=== PATIENT | female | born 1950 | race Caucasian/White ===

== ENCOUNTER → 2017-02-07 | Outpatient (CLI) | payer OTHER ==
[~2017-02-07] MED LIST: CONEST.625; LEVO750 PO; LEVSOD100 PO; LEVSOD75 PO; MECL25 PO; MESA250ER PO; MESA400ER; NITR.4SL SL
[2017-02-07 12:39] LABS: BASOPHILS ABSOLUTE AUTO 0.05 K/mm3 (0.00-0.23); BASOPHILS PERCENT AUTO 1 % (0-2); EOSINOPHILS ABSOLUTE AUTO 0.08 K/mm3 (0.00-0.68); EOSINOPHILS PERCENT AUTO 1 % (0-6); Hematocrit 35.3 % (33.0-51.0); Hemoglobin 11.8 g/dL (11.5-16.0); IMMATURE GRAN ABSOLUTE AUTO 0.03 K/mm3 (0.00-0.10); IMMATURE GRAN PERCENT AUTO 0 % (0-1); LYMPHOCYTES ABSOLUTE AUTO 2.04 K/mm3 (0.84-5.20); LYMPHOCYTES PERCENT AUTO 19 % (21-46); MONOCYTES ABSOLUTE AUTO 1.34 K/mm3 (0.16-1.47); MONOCYTES PERCENT AUTO 13 % (4-13); Mean Corpuscular HGB 30.3 pg (26.0-34.0); Mean Corpuscular HGB Conc 33.4 g/dL (31.5-36.5); Mean Corpuscular Volume 91 fL (80-100); Mean Platelet Volume 8.7 fL (9.1-12.4); NEUTROPHILS ABSOLUTE AUTO 7.19 K/mm3 (1.96-9.15); NEUTROPHILS PERCENT AUTO 67 % (41-73); Platelet Count 423 K/mm3 (150-400); RDW Standard Deviation 42.3 fL (35.1-46.3); White Blood Cell Count 10.73 K/mm3 (4.00-11.30)
== END ==
LOC: LAB EV 12:33
PROVIDERS: Physician Assistant
DX: M25.531 Pain in right wrist (principal); R07.9 Chest pain, unspecified
CPT/HCPCS: 84550; 85025; 85379; 85651

== ENCOUNTER → 2017-03-07 | Outpatient (CLI) | payer OTHER | END | disposition home or self-care (01) | LOC: LAB 13:28 | DX: E03.9 Hypothyroidism, unspecified (principal) | CPT/HCPCS: 84443 ==

== ENCOUNTER → 2017-06-08 | Outpatient (CLI) | payer OTHER ==
[2017-06-08 14:00] LABS: Free Thyroxine 1.59 ng/dL (0.70-1.60)
[2017-06-08 14:04] LABS: Thyroid Stimulating Hormone 0.26 uIU/mL (0.360-4.800); Triiodothyronine, Free 2.53 pg/mL (2.18-3.98)
== END | disposition home or self-care (01) ==
LOC: LAB SHORT 13:32 → LAB 13:32
PROVIDERS: Nurse Practitioner Family
DX: E03.9 Hypothyroidism, unspecified (principal)
CPT/HCPCS: 84439; 84443; 84481

== ENCOUNTER → 2018-08-07 | Outpatient (CLI) | payer MEDICARE ==
[2018-08-07 14:20] LABS: BASOPHILS ABSOLUTE AUTO 0.03 K/mm3 (0.00-0.23); BASOPHILS PERCENT AUTO 0 % (0-2); EOSINOPHILS PERCENT AUTO 1 % (0-6); Hematocrit 35.3 % (33.0-51.0); Hemoglobin 11.6 g/dL (11.5-16.0); IMMATURE GRAN ABSOLUTE AUTO 0.04 K/mm3 (0.00-0.10); IMMATURE GRAN PERCENT AUTO 0 % (0-1); LYMPHOCYTES ABSOLUTE AUTO 2.09 K/mm3 (0.84-5.20); LYMPHOCYTES PERCENT AUTO 18 % (21-46); MONOCYTES ABSOLUTE AUTO 1.07 K/mm3 (0.16-1.47); MONOCYTES PERCENT AUTO 9 % (4-13); Mean Corpuscular HGB 30.3 pg (26.0-34.0); Mean Corpuscular HGB Conc 32.9 g/dL (31.5-36.5); Mean Corpuscular Volume 92 fL (80-100); Mean Platelet Volume 9.4 fL (9.1-12.4); NEUTROPHILS PERCENT AUTO 71 % (41-73); Platelet Count 336 K/mm3 (150-400); RDW Coefficient Variation 12.8 % (11.7-14.2); RDW Standard Deviation 42.9 fL (35.1-46.3); Red Blood Cell Count 3.83 M/mm3 (3.80-5.20); White Blood Cell Count 11.53 K/mm3 (4.00-11.30)
== END | disposition home or self-care (01) ==
LOC: LAB SHORT 14:14 → LAB EV 14:14
PROVIDERS: Physician Assistant
DX: M54.5 Low back pain (principal)
CPT/HCPCS: 85025; 85651

== ENCOUNTER → 2019-02-09 | Outpatient (CLI) | payer MEDICARE | END | disposition home or self-care (01) | LOC: LAB 10:10 → LAB SHORT 10:10 → LAB FUT 02-06 19:40 | DX: K29.70 Gastritis, unspecified, without bleeding (principal); R19.7 Diarrhea, unspecified; R10.9 Unspecified abdominal pain | CPT/HCPCS: 87177; 87209 ==

== ENCOUNTER → 2019-06-17 | Outpatient (CLI) | payer MEDICARE ==
[2019-06-19 12:28] LABS: Stool Occult Bld Immuno 1 Positive (NEGATIVE)
== END | disposition home or self-care (01) ==
LOC: LAB 13:16 → LAB SHORT 06-18 13:16 → LAB 06-18 13:16
PROVIDERS: Nurse Practitioner Primary Care
DX: Z12.11 Encounter for screening for malignant neoplasm of colon (principal); D64.9 Anemia, unspecified
CPT/HCPCS: G0328

== ENCOUNTER 2019-11-20 12:39 | Inpatient (IN) | payer MEDICARE ==
[~2019-11-20] VITALS: Ht 165.1 cm; Wt 51.9 kg
[~2019-11-20 12:39] MED LIST changes: +Cipro500 MG PO; +EUTHYROX112 MCG PO; +Flagyl500 MG PO; +MESALAMINE PO; +Norco 5-325 Ta1 EACH PO; +ONDA4ODT MM
[2019-11-20 13:28] LABS: BASOPHILS ABSOLUTE AUTO 0.04 K/mm3 (0.00-0.23); BASOPHILS PERCENT AUTO 0 % (0-2); EOSINOPHILS ABSOLUTE AUTO 0.12 K/mm3 (0.00-0.68); EOSINOPHILS PERCENT AUTO 1 % (0-6); Hematocrit 31.4 % (33.0-51.0); IMMATURE GRAN ABSOLUTE AUTO 0.08 K/mm3 (0.00-0.10); IMMATURE GRAN PERCENT AUTO 1 % (0-1); LYMPHOCYTES ABSOLUTE AUTO 2.06 K/mm3 (0.84-5.20); LYMPHOCYTES PERCENT AUTO 14 % (21-46); MONOCYTES ABSOLUTE AUTO 1.35 K/mm3 (0.16-1.47); MONOCYTES PERCENT AUTO 9 % (4-13); Mean Corpuscular HGB Conc 31.8 g/dL (31.5-36.5); Mean Corpuscular Volume 88 fL (80-100); Mean Platelet Volume 8.8 fL (9.1-12.4); NEUTROPHILS ABSOLUTE AUTO 11.22 K/mm3 (1.96-9.15); NEUTROPHILS PERCENT AUTO 75 % (41-73); Platelet Count 452 K/mm3 (150-400); RDW Coefficient Variation 14.7 % (11.7-14.2); RDW Standard Deviation 47.7 fL (35.1-46.3); Red Blood Cell Count 3.57 M/mm3 (3.80-5.20); White Blood Cell Count 14.87 K/mm3 (4.00-11.30)
[2019-11-20 13:40] LABS: Alanine Aminotransfer (ALT/SGP 29 U/L (12-78); Albumin, Blood 2.3 g/dL (3.4-5.0); Albumin/Globulin Ratio 0.5 (0.8-1.8); Alk Phos 84 U/L (50-136); Anion Gap 9 mmol/L (6-16); Aspartate Aminotrans (AST/SGOT 13 U/L (12-37); Bilirubin, Total 0.3 mg/dL (0.1-1.0); Blood Urea Nitrogen 17 mg/dL (8-24); Bun/Creatinine Ratio 24.2 (12.0-20.0); CO2, Blood 22 mmol/L (21-32); Calcium, Blood 8.5 mg/dL (8.5-10.1); Chloride, Blood 100 mmol/L (98-108); Globulin, Blood 4.7 g/dL (2.2-4.0); Glomerular Filtration Rate >60 (60-); Glucose, Blood 130 mg/dL (70-99); Potassium, Blood 4.1 mmol/L (3.5-5.5); Sodium, Blood 131 mmol/L (136-145)
[2019-11-20 16:36] LABS: Source, Urine Clean Catch
[2019-11-20 16:42] LABS: Bilirubin, Urine Neg (Neg); Blood, Urine Neg (Neg); Glucose Qualitative, Urine Neg (Neg); Ketones, Urine Neg (Neg); Leukocyte Esterase, Urine 1+ (Neg); Nitrite, Urine Neg (Neg); Protein, Urine 1+ (Neg); Specific Gravity, Urine 1.015 (1.003-1.022); Urobilinogen, Urine NORM (Normal)
[2019-11-20 16:54] LABS: Appearance, Urine Clear (Clear); Color, Urine Amber (P-Yellow)
[2019-11-20 16:55] LABS: Bacteria Few /hpf; Red Blood Cells, Urine Not Seen /hpf (0-2); Squamous Epithelial Cells Few /hpf (Few); White Blood Cells, Urine 0-2 /hpf (0-5)
[2019-11-20] MEDS ORDERED: Bentyl20 MG PO (18:19)
[2019-11-20] MEDS ORDERED: ZOFRAN4 MG PO (18:20)
[2019-11-20 20:35] LABS: International Normalized Ratio 1.09; Prothrombin Time Results 11.6 Sec (9.7-11.5)
[2019-11-20 21:09] LABS: Hematocrit 30.8 % (33.0-51.0); Hemoglobin 9.8 g/dL (11.5-16.0)
[2019-11-21 05:11] LABS: BASOPHILS ABSOLUTE AUTO 0.05 K/mm3 (0.00-0.23); BASOPHILS PERCENT AUTO 0 % (0-2); EOSINOPHILS ABSOLUTE AUTO 0.05 K/mm3 (0.00-0.68); EOSINOPHILS PERCENT AUTO 0 % (0-6); Hematocrit 26.9 % (33.0-51.0); Hemoglobin 8.6 g/dL (11.5-16.0); IMMATURE GRAN ABSOLUTE AUTO 0.06 K/mm3 (0.00-0.10); IMMATURE GRAN PERCENT AUTO 1 % (0-1); LYMPHOCYTES PERCENT AUTO 18 % (21-46); MONOCYTES ABSOLUTE AUTO 1.59 K/mm3 (0.16-1.47); MONOCYTES PERCENT AUTO 13 % (4-13); Mean Corpuscular HGB 27.7 pg (26.0-34.0); Mean Corpuscular Volume 87 fL (80-100); Mean Platelet Volume 8.4 fL (9.1-12.4); NEUTROPHILS ABSOLUTE AUTO 8.33 K/mm3 (1.96-9.15); NEUTROPHILS PERCENT AUTO 68 % (41-73); Platelet Count 425 K/mm3 (150-400); RDW Coefficient Variation 14.9 % (11.7-14.2); RDW Standard Deviation 47.1 fL (35.1-46.3); Red Blood Cell Count 3.11 M/mm3 (3.80-5.20); White Blood Cell Count 12.28 K/mm3 (4.00-11.30)
--- NOTE | 2019-11-21 05:26 | NUR ---
SHIFT SUMMARY PT ARRIVED TO UNIT FROM ED VIA STRETCHER @ 2041. TRANSFERRED FROM STRETCHER TO STANDING SCALE THEN TO BED IND/SBA. PT IS A&O X4, SCDS IN PLACE. NPO @ 0000. MEDICATED FOR PAIN X1. PT IS LAYING IN BED WITH EYES CLOSED, EVEN AND UNLABORED RESPIRATIONS. BED IN LOWERED POSITION. CALL LIGHT AND PERSONAL ITEMS WITHIN REACH. NO APPARENT NEEDS OR DISTRESS AT THIS TIME, WILL CONTINUE TO MONITOR UNTIL REPORT GIVEN TO DAY RN.
[2019-11-21 05:41] LABS: Anion Gap 8 mmol/L (6-16); Blood Urea Nitrogen 10 mg/dL (8-24); Bun/Creatinine Ratio 13.8 (12.0-20.0); CO2, Blood 21 mmol/L (21-32); Calcium, Blood 8.4 mg/dL (8.5-10.1); Chloride, Blood 105 mmol/L (98-108); Creatinine, Blood 0.73 mg/dL (0.40-1.00); Glomerular Filtration Rate >60 (60-); Glucose, Blood 90 mg/dL (70-99); Potassium, Blood 3.9 mmol/L (3.5-5.5); Sodium, Blood 134 mmol/L (136-145)
[2019-11-21 09:47] LABS: Hematocrit 27.8 % (33.0-51.0); Hemoglobin 8.8 g/dL (11.5-16.0)
--- NOTE | 2019-11-21 13:02 | NUR ---
CONSULT CALLED TO DR THAPA.
--- NOTE | 2019-11-21 16:52 | NUR ---
SHIFT SUMMARY NO ACUTE CHANGES T/O SHIFT, A&OX4. PT IS AWAITING CONSULT WITH SURGEON. PT SPOKE WITH KERON TODAY WHO RECCOMMENDED PROLONGED ABX FOR INITIAL TX PLAN AND AGREED THAT PT MAY PROGRESS TO A CLEAR LIQUID DIET. SAI CONFIRMED CLEAR LIQUID DIET AND PT IS TOLERATING DIET WELL OF NOW. NO IV PAIN MEDICATION PROVIDED T/O SHIFT, PT STATED PAIN IS ALMOST NONEXISTENT AND SHE FEELS A LOT BETTER THAN YESTERDAY. PT DID VOICE SOME DISTRESS TODAY REGARDING HER DOG AT HOME. NEIGHBOR CAME BY AND GOT SHARP FROM PT TO BE ABLE TO CHECK ON DOG.
--- NOTE | 2019-11-21 18:05 | NUR ---
Initial spiritual care note: I met with Marta and her friend to offer education on ACP. Marta wanted to complete and Advanced Directive naming her friend as LETICIA. She does not want her sister involved in any way. These two women appear to be great friends--laughing and joking with each other. Advanced Directive completed and notarized. Several copies made for pt. I hand-carried a copy to Medical Records. I provided theraputic listening to Marta vent about her struggles getting the medical community to understand "something is wrong." She is hopeful potential proceedure will easy her chronic pain. She is non-jainism, but responded well to emotional affirmation and gentle claims counsel. [employer] will remain available.
--- NOTE | 2019-11-21 18:42 | NUR ---
CALL DR MADISON'S OFFICE THIS MORNING TO CONFIRM CONSULT WITH PT, SURGEON DID NOT SHOW. CALLED ANSWERING SERVICE AGAIN THIS AFTERNOON TO CHECK IF SURGEON WAS COMING TODAY. MOLD OPERATOR SAID SHE WOULD INFORM HIM VIA THEIR SYSTEM AND HAVE HIM CALL MEDICAL FLOOR WITH INFORMATION REGARDING IF HE IS COMING TODAY. SURGEON STILL NO SHOW AT THIS TIME.
[2019-11-22 04:51] LABS: BASOPHILS ABSOLUTE AUTO 0.03 K/mm3 (0.00-0.23); BASOPHILS PERCENT AUTO 0 % (0-2); EOSINOPHILS ABSOLUTE AUTO 0.09 K/mm3 (0.00-0.68); EOSINOPHILS PERCENT AUTO 1 % (0-6); Hematocrit 28.2 % (33.0-51.0); Hemoglobin 8.9 g/dL (11.5-16.0); IMMATURE GRAN ABSOLUTE AUTO 0.05 K/mm3 (0.00-0.10); IMMATURE GRAN PERCENT AUTO 1 % (0-1); LYMPHOCYTES ABSOLUTE AUTO 2.02 K/mm3 (0.84-5.20); LYMPHOCYTES PERCENT AUTO 22 % (21-46); MONOCYTES ABSOLUTE AUTO 1.22 K/mm3 (0.16-1.47); MONOCYTES PERCENT AUTO 13 % (4-13); Mean Corpuscular HGB 27.5 pg (26.0-34.0); Mean Corpuscular HGB Conc 31.6 g/dL (31.5-36.5); Mean Corpuscular Volume 87 fL (80-100); Mean Platelet Volume 8.1 fL (9.1-12.4); NEUTROPHILS ABSOLUTE AUTO 5.83 K/mm3 (1.96-9.15); NEUTROPHILS PERCENT AUTO 63 % (41-73); Platelet Count 391 K/mm3 (150-400); RDW Coefficient Variation 14.9 % (11.7-14.2); Red Blood Cell Count 3.24 M/mm3 (3.80-5.20); White Blood Cell Count 9.24 K/mm3 (4.00-11.30)
[2019-11-22 05:13] LABS: Albumin, Blood 1.9 g/dL (3.4-5.0); Anion Gap 8 mmol/L (6-16); Blood Urea Nitrogen 6 mg/dL (8-24); CO2, Blood 21 mmol/L (21-32); Chloride, Blood 108 mmol/L (98-108); Creatinine, Blood 0.67 mg/dL (0.40-1.00); Glomerular Filtration Rate >60 (60-); Glucose, Blood 83 mg/dL (70-99); Magnesium, Blood 1.9 mg/dL (1.6-2.4); Phosphorus, Blood 2.6 mg/dL (2.5-4.9); Potassium, Blood 3.7 mmol/L (3.5-5.5); Sodium, Blood 137 mmol/L (136-145)
--- NOTE | 2019-11-22 05:43 | NUR ---
SHIFT SUMMARY NO ACUTE CHANGES THIS SHIFT. PT IS A&O X 4, IND IN ROOM. PT WAS UP AND DOWN TO THE BATHROOM T/O NIGHT. NO COMPLAINTS OF ANY KIND. PT IS LAYING IN BED WATCHING TV, EVEN AND UNLABORED RESPIRATIONS. BED IN LOWERED POSITION WITH HOB ELEVATED. CALL LIGHT AND PERSONAL ITEMS WITHIN REACH. NO APPARENT NEEDS OR DISTRESS AT THIS TIME, WILL CONTINUE TO MONITOR UNTIL REPORT GIVEN TO DAY RN.
[2019-11-22] MEDS ORDERED: AMOX-CLAV 875-1 EAC1 PO (15:09)
[2019-11-22] MEDS ORDERED: ACET325 PO (15:09)
[2019-11-22] MEDS ORDERED: PROM25 PO (15:10)
== END 2019-11-22 15:38 | disposition home or self-care (01) | DRG 386 ==
LOC: ER 12:39 → MEDS 19:10 → ENPENDDIS 11-22 14:56 → MEDS 11-22 15:38
PROVIDERS: Emergency Medicine; Internal Medicine; Nurse Practitioner Acute Care; Physician Assistant; ADMIT Hospitalist
DX: K50.914 Crohn's disease, unspecified, with abscess (principal); E87.1 Hypo-osmolality and hyponatremia; E03.9 Hypothyroidism, unspecified; J44.9 Chronic obstructive pulmonary disease, unspecified; D50.0 Iron deficiency anemia secondary to blood loss (chronic); E78.5 Hyperlipidemia, unspecified; F17.210 Nicotine dependence, cigarettes, uncomplicated
CPT/HCPCS: 36415; 74177; 80048; 80053; 80069; 81001; 83605; 83690; 83735; 85014; 85018; 85025; 85610; 85730; 86850; 86900; 86901; 87086; 96361; 96365; 96366; 99285-25; C9113; J0295; J1170; J7030; J7120; Q9967; U0003

== ENCOUNTER 2020-02-14 01:08 | Day surgery (SDC) | payer MEDICARE ==
[~2020-02-14 01:08] MED LIST changes: +ACET325 PO; +AMOX-CLAV 875-1 EAC1 PO; +Bentyl20 MG PO; +PROM25 PO; +ZOFRAN4 MG PO
--- NOTE | 2020-02-14 13:57 | NUR ---
PT IN TO [facility]. TEMP 100.7. STATES SHE HAS BEEN HAVING LLQ ABDOMINAL PAIN. STATES IF FEELS SIMILAR TO PAIN SHE HAD WITH RECENT ABSCESS. CALL PLACED TO DR. CHAVEZ OFFICE WITH REPORT.
[2020-02-14] MEDS ORDERED: CALCIUM CITRAT250 MG PO (14:23)
[2020-02-14] MEDS ORDERED: VITAMIN D32000 UNI1 PO (14:23)
[2020-02-14] MEDS ORDERED: LEVSOD100 PO (14:24)
[2020-02-14] MEDS ORDERED: Vitamin B Comple1 EA PO (14:24)
== END 2020-02-14 23:25 | disposition home or self-care (01) ==
LOC: ATC 01:08
DX: K50.114 Crohn's disease of large intestine with abscess (principal); Z79.899 Other long term (current) drug therapy; Z88.2 Allergy status to sulfonamides; Z88.5 Allergy status to narcotic agent; Z88.8 Allergy status to other drugs, medicaments and biological substances; Z86.010 Personal history of colon polyps; Z20.822 Contact with and (suspected) exposure to COVID-19
CPT/HCPCS: A9270; J1745; J7050; Q0163

== ENCOUNTER 2020-03-25 00:19 | Day surgery (SDC) | payer MEDICARE ==
[~2020-03-25 00:19] MED LIST changes: +CALCIUM CITRAT250 MG PO; +VITAMIN D32000 UNI1 PO; +Vitamin B Comple1 EA PO
[2020-03-25] MEDS ORDERED: CENTRUM SILVER1 EAC2 PO (14:46)
[2020-05-20] MEDS ORDERED: RENFLEXIS100 M1 IV (14:13)
== END 2020-03-25 16:45 | disposition home or self-care (01) ==
LOC: ATC 00:19
DX: K50.114 Crohn's disease of large intestine with abscess (principal); Z86.010 Personal history of colon polyps; Z88.5 Allergy status to narcotic agent; Z88.2 Allergy status to sulfonamides; Z88.8 Allergy status to other drugs, medicaments and biological substances
CPT/HCPCS: 96375; 96413; 96415; A9270; J1720; J1745; J7050

== ENCOUNTER 2020-04-08 00:04 | Day surgery (SDC) | payer MEDICARE ==
[~2020-04-08 00:04] MED LIST changes: +CENTRUM SILVER1 EAC2 PO
[2020-05-20] MEDS ORDERED: RENFLEXIS100 M1 IV (14:13)
== END 2020-04-08 16:05 | disposition home or self-care (01) ==
LOC: ATC 00:04
DX: K50.114 Crohn's disease of large intestine with abscess (principal); Z86.010 Personal history of colon polyps; Z88.5 Allergy status to narcotic agent; Z88.2 Allergy status to sulfonamides; Z79.899 Other long term (current) drug therapy
CPT/HCPCS: 96375; 96413; 96415; A9270; J1720; J1745; J7050

== ENCOUNTER 2020-07-15 02:39 | Day surgery (SDC) | payer MEDICARE ==
[~2020-07-15] VITALS: Wt 47.4 kg
[~2020-07-15 02:39] MED LIST changes: +RENFLEXIS100 M1 IV
== END 2020-07-15 16:05 | disposition home or self-care (01) ==
LOC: ATC 02:39
DX: K50.114 Crohn's disease of large intestine with abscess (principal); Z88.5 Allergy status to narcotic agent; Z88.2 Allergy status to sulfonamides; Z88.8 Allergy status to other drugs, medicaments and biological substances
CPT/HCPCS: 96375; 96413; 96415; A9270; J1720; J1745; J7050

== ENCOUNTER 2021-02-25 12:08 | Inpatient (IN) | payer OTHER ==
[~2021-02-25] VITALS: Ht 165.1 cm; Wt 47.1 kg
[2021-02-25 12:44] LABS: BASOPHILS ABSOLUTE AUTO 0.06 K/mm3 (0.00-0.23); BASOPHILS PERCENT AUTO 0 % (0-2); EOSINOPHILS ABSOLUTE AUTO 0.09 K/mm3 (0.00-0.68); EOSINOPHILS PERCENT AUTO 1 % (0-6); Hematocrit 31.3 % (33.0-51.0); Hemoglobin 10.2 g/dL (11.5-16.0); IMMATURE GRAN ABSOLUTE AUTO 0.07 K/mm3 (0.00-0.10); IMMATURE GRAN PERCENT AUTO 1 % (0-1); LYMPHOCYTES ABSOLUTE AUTO 2.15 K/mm3 (0.84-5.20); LYMPHOCYTES PERCENT AUTO 15 % (21-46); MONOCYTES ABSOLUTE AUTO 1.52 K/mm3 (0.16-1.47); MONOCYTES PERCENT AUTO 10 % (4-13); Mean Corpuscular HGB 28.3 pg (26.0-34.0); Mean Corpuscular HGB Conc 32.6 g/dL (31.5-36.5); Mean Corpuscular Volume 87 fL (80-100); Mean Platelet Volume 8.3 fL (9.1-12.4); NEUTROPHILS ABSOLUTE AUTO 10.68 K/mm3 (1.96-9.15); NEUTROPHILS PERCENT AUTO 73 % (41-73); Platelet Count 563 K/mm3 (150-400); RDW Standard Deviation 51.3 fL (35.1-46.3); Red Blood Cell Count 3.61 M/mm3 (3.80-5.20); White Blood Cell Count 14.57 K/mm3 (4.00-11.30)
[2021-02-25 13:12] LABS: Alanine Aminotransfer (ALT/SGP 20 U/L (12-78); Albumin, Blood 2.1 g/dL (3.4-5.0); Albumin/Globulin Ratio 0.4 (0.8-1.8); Alk Phos 88 U/L (50-136); Anion Gap 8 mmol/L (6-16); Aspartate Aminotrans (AST/SGOT 9 U/L (12-37); Bilirubin, Total 0.4 mg/dL (0.1-1.0); Blood Urea Nitrogen 15 mg/dL (8-24); CO2, Blood 23 mmol/L (21-32); Calcium, Blood 8.5 mg/dL (8.5-10.1); Chloride, Blood 101 mmol/L (98-108); Creatinine, Blood 0.62 mg/dL (0.40-1.00); Globulin, Blood 4.7 g/dL (2.2-4.0); Glomerular Filtration Rate >60 (60-); Glucose, Blood 104 mg/dL (70-99); Potassium, Blood 4.3 mmol/L (3.5-5.5); Sodium, Blood 132 mmol/L (136-145); Total Protein, Blood 6.8 g/dL (6.4-8.2)
[2021-02-25 18:40] LABS: Influenza A, PCR NEGATIVE (NEGATIVE); Influenza B, PCR NEGATIVE (NEGATIVE); Resp Syncytial Virus, PCR NEGATIVE (NEGATIVE); SARS-Cov-2 (COVID-19) PCR, MMC NEGATIVE (NEGATIVE)
[2021-02-26 05:02] LABS: BASOPHILS ABSOLUTE AUTO 0.03 K/mm3 (0.00-0.23); BASOPHILS PERCENT AUTO 0 % (0-2); EOSINOPHILS ABSOLUTE AUTO 0.09 K/mm3 (0.00-0.68); EOSINOPHILS PERCENT AUTO 1 % (0-6); Hematocrit 27.3 % (33.0-51.0); Hemoglobin 8.7 g/dL (11.5-16.0); IMMATURE GRAN ABSOLUTE AUTO 0.07 K/mm3 (0.00-0.10); IMMATURE GRAN PERCENT AUTO 1 % (0-1); LYMPHOCYTES ABSOLUTE AUTO 2.57 K/mm3 (0.84-5.20); LYMPHOCYTES PERCENT AUTO 23 % (21-46); MONOCYTES ABSOLUTE AUTO 1.36 K/mm3 (0.16-1.47); MONOCYTES PERCENT AUTO 12 % (4-13); Mean Corpuscular HGB 28.3 pg (26.0-34.0); Mean Corpuscular HGB Conc 31.9 g/dL (31.5-36.5); Mean Corpuscular Volume 89 fL (80-100); Mean Platelet Volume 9.1 fL (9.1-12.4); NEUTROPHILS ABSOLUTE AUTO 7.03 K/mm3 (1.96-9.15); NEUTROPHILS PERCENT AUTO 63 % (41-73); Platelet Count 444 K/mm3 (150-400); RDW Coefficient Variation 16.3 % (11.7-14.2); RDW Standard Deviation 53.1 fL (35.1-46.3); Red Blood Cell Count 3.07 M/mm3 (3.80-5.20); White Blood Cell Count 11.15 K/mm3 (4.00-11.30)
--- NOTE | 2021-02-26 05:09 | NUR ---
SHIFT SUMMARY NO ACUTE CHANGES. PT ON 100 ML/HR NS. PT RESTING IN BED. MEDICATED FOR PAIN WITH DILAUDID AROUND 0400. PT COOPERATIVE WITH CARE. WAITING FOR BED AT [facility] FOR SURGICAL INTERVENTION FOR HER INTERNAL ABD ABSCESS. PT HAS RED RAISED BUMP ON HER LOWER LEFT QUADRANT, NEAR HER HIP. PT GETTING ANTIBIOTICS. PT ADMITTED LAST NIGHT FROM THE ED. REPORT GIVEN TO ME BY JACOBY Brower RN. HX OF CROHN'S AND GRAVE'S DISEASES. CALL LIGHT WITHIN REACH. WILL CONTINUE TO MONITOR.
[2021-02-26 06:06] LABS: Alanine Aminotransfer (ALT/SGP 15 U/L (12-78); Albumin, Blood 1.7 g/dL (3.4-5.0); Albumin/Globulin Ratio 0.5 (0.8-1.8); Alk Phos 78 U/L (50-136); Anion Gap 8 mmol/L (6-16); Aspartate Aminotrans (AST/SGOT 8 U/L (12-37); Bilirubin, Total 0.5 mg/dL (0.1-1.0); Blood Urea Nitrogen 12 mg/dL (8-24); Bun/Creatinine Ratio 16.6 (12.0-20.0); CO2, Blood 22 mmol/L (21-32); Calcium, Blood 7.8 mg/dL (8.5-10.1); Chloride, Blood 106 mmol/L (98-108); Creatinine, Blood 0.72 mg/dL (0.40-1.00); Globulin, Blood 3.4 g/dL (2.2-4.0); Glomerular Filtration Rate >60 (60-); Glucose, Blood 75 mg/dL (70-99); Potassium, Blood 4.5 mmol/L (3.5-5.5); Sodium, Blood 136 mmol/L (136-145); Total Protein, Blood 5.1 g/dL (6.4-8.2)
--- NOTE | 2021-02-26 08:39 | NUR ---
PER DR. DAVILA POSSIBLE TRANSFER TODAY, SO NPO. TO LET US KNOW IF NO BED TODAY SO WE CAN CHANGE NPO STATIS.
--- NOTE | 2021-02-26 09:16 | NUR ---
NO BED IN [place] TODAY, SO PER MD ADVANCE DIET TOLERATED
--- NOTE | 2021-02-26 13:24 | NUR ---
patient smoking in bathroom. found by diesel bus mechanic. smokes and in house counsel locked in drawer. offeref nicotine patch, but refused. patient pulled iv out. patient aware can not smoke in hospital. jorge a
--- NOTE | 2021-02-26 15:44 | NUR ---
ALERT. ORIENTED. HAS TALKED MOST OF SHIFT ABOUT LEAVING. STS "DOCTOR CAME IN AND SAID THEY "WOULD GIVE ME ANTIBIOTICS, PAIN MEDS AND CALL ME WHEN BED OPEN IN [facility]." DISCUSSED WITH DR. ENCARNACION UNABLE TO REACH . TO COME TO ROOM AND TALK TO PATIENT. MEDICATED FOR PAIN WITH GOOD RESULTS. INDEPENDENT IN ROOM. AWARE NOT TO SMOKE IN ROOM. [facility]
--- NOTE | 2021-02-26 18:21 | NUR ---
PATIENT AWARE STAYING TILL BED OPEN AT [facility]. MEDICATED FOR PAIN X 2 WITH GOOD RESULTS. SWELLING/REDNESS TO LEFT ANTERIOR HIP. INDEPENDENT IN ROOM. IV RESTARTED. WCTM
--- NOTE | 2021-02-27 06:08 | NUR ---
SHIFT SUMMARY: PATIENT CONTINUES TO REPORT PAIN IN LEFT HIP. LEFT HIP IS REDDEND. REPOSITIONING AND IV DILAUDID ARE PROVIDING EFFECTIVE PAIN CONTROL. PATIENT IS INDEPENDANT IN THE ROOM. LOW GRADE TEMP. IS OBSERVED 99.7, TYLENOL WAS GIVEN WITH GOOD EFFECT, RECHECK WAS 97.1.
[2021-02-27 08:19] LABS: BASOPHILS ABSOLUTE AUTO 0.04 K/mm3 (0.00-0.23); BASOPHILS PERCENT AUTO 0 % (0-2); EOSINOPHILS ABSOLUTE AUTO 0.04 K/mm3 (0.00-0.68); EOSINOPHILS PERCENT AUTO 0 % (0-6); Hematocrit 27.5 % (33.0-51.0); Hemoglobin 8.8 g/dL (11.5-16.0); IMMATURE GRAN ABSOLUTE AUTO 0.05 K/mm3 (0.00-0.10); IMMATURE GRAN PERCENT AUTO 1 % (0-1); LYMPHOCYTES ABSOLUTE AUTO 2.09 K/mm3 (0.84-5.20); LYMPHOCYTES PERCENT AUTO 23 % (21-46); MONOCYTES ABSOLUTE AUTO 1.06 K/mm3 (0.16-1.47); MONOCYTES PERCENT AUTO 12 % (4-13); Mean Corpuscular HGB 28.4 pg (26.0-34.0); Mean Corpuscular Volume 89 fL (80-100); Mean Platelet Volume 9.4 fL (9.1-12.4); NEUTROPHILS ABSOLUTE AUTO 5.66 K/mm3 (1.96-9.15); NEUTROPHILS PERCENT AUTO 63 % (41-73); Platelet Count 413 K/mm3 (150-400); RDW Coefficient Variation 16.4 % (11.7-14.2); RDW Standard Deviation 53.6 fL (35.1-46.3); White Blood Cell Count 8.94 K/mm3 (4.00-11.30)
--- NOTE | 2021-02-27 16:56 | NUR ---
ALERT. ORIENTED. ABSCESS SITE LEFT ANTERIOR HIP LOOKS LITTLE WORSE THAN YESTERDAY. LITTLE MORE RAISED AND REDDER. PATIENT STILL ON TRANSFER LIST TO [facility]. MONDAY POSSIBLE I&D(?) ABSCESS FROM FROM [place]. CATHERINE. COOPERATIVE. MEDICATED FOR PAIN WITH GOOD RESULTS. IV PATENT. TM
--- NOTE | 2021-02-27 21:16 | NUR ---
COBRA TRANSFER: REPORT WAS CALLED TO KAY VANN AT [facility] ([facility]). PATIENT IS REPORTING PAIN BUT TO EARLY FOR DILAUDIL. SEED ANALYST MD WAS NOTIFIED AND ORDER FOR A NOW DOSE OF DILAUDID WAS OBTAINED. DILAUDID AND TYLENOL ARE GIVEN AND PATIENT IS TRANFERED OFF UNIT VIA STRETCHER.
== END 2021-02-27 21:17 | disposition short-term general hospital (02) | DRG 872 ==
LOC: ER 12:08 → MEDS 21:34
PROVIDERS: Family Medicine; Physician Assistant; Student in an Organized Health Care Education/Training Program; ADMIT Family Medicine
DX: A41.9 Sepsis, unspecified organism (principal); K50.914 Crohn's disease, unspecified, with abscess; E87.1 Hypo-osmolality and hyponatremia; K50.913 Crohn's disease, unspecified, with fistula; Z20.822 Contact with and (suspected) exposure to COVID-19; J44.9 Chronic obstructive pulmonary disease, unspecified; D64.9 Anemia, unspecified; E03.9 Hypothyroidism, unspecified; Z28.21 Immunization not carried out because of patient refusal; Z88.2 Allergy status to sulfonamides; Z88.5 Allergy status to narcotic agent; Z88.8 Allergy status to other drugs, medicaments and biological substances; Z71.6 Tobacco abuse counseling; Z79.899 Other long term (current) drug therapy; Z87.891 Personal history of nicotine dependence; Z90.710 Acquired absence of both cervix and uterus; Z90.49 Acquired absence of other specified parts of digestive tract
CPT/HCPCS: 0241U; 36415; 74177; 76857; 80053; 83605; 85025; 87040; 96365-59; 96375; 99285-25; A9270; J1170; J2405; J2543; J7030; Q9967

== ENCOUNTER 2021-05-11 11:28 | Inpatient (IN) | payer OTHER, MEDICARE ==
[~2021-05-11] VITALS: Ht 165.1 cm; Wt 45.7 kg
[~2021-05-11 11:28] MED LIST changes: +LEVSOD112 PO
[2021-05-11 12:15] LABS: BASOPHILS ABSOLUTE AUTO 0.03 K/mm3 (0.00-0.23); BASOPHILS PERCENT AUTO 0 % (0-2); EOSINOPHILS PERCENT AUTO 0 % (0-6); Hematocrit 49.4 % (33.0-51.0); Hemoglobin 16.4 g/dL (11.5-16.0); IMMATURE GRAN PERCENT AUTO 1 % (0-1); LYMPHOCYTES ABSOLUTE AUTO 2.18 K/mm3 (0.84-5.20); LYMPHOCYTES PERCENT AUTO 12 % (21-46); MONOCYTES ABSOLUTE AUTO 1.16 K/mm3 (0.16-1.47); MONOCYTES PERCENT AUTO 6 % (4-13); Mean Corpuscular HGB 30.8 pg (26.0-34.0); Mean Corpuscular HGB Conc 33.2 g/dL (31.5-36.5); Mean Corpuscular Volume 93 fL (80-100); Mean Platelet Volume 10.6 fL (9.1-12.4); NEUTROPHILS ABSOLUTE AUTO 15.51 K/mm3 (1.96-9.15); NEUTROPHILS PERCENT AUTO 82 % (41-73); Platelet Count 384 K/mm3 (150-400); RDW Coefficient Variation 14.8 % (11.7-14.2); RDW Standard Deviation 51.4 fL (35.1-46.3); Red Blood Cell Count 5.33 M/mm3 (3.80-5.20); White Blood Cell Count 18.98 K/mm3 (4.00-11.30)
[2021-05-11 12:41] LABS: Albumin, Blood 4.1 g/dL (3.4-5.0); Albumin/Globulin Ratio 0.7 (0.8-1.8); Bilirubin, Total 0.8 mg/dL (0.1-1.0); Bun/Creatinine Ratio 12.5 (12.0-20.0); Calcium, Blood 10.5 mg/dL (8.5-10.1); Creatinine, Blood 3.2 mg/dL (0.40-1.00); Globulin, Blood 5.8 g/dL (2.2-4.0); Potassium, Blood 4.5 mmol/L (3.5-5.5); Total Protein, Blood 9.9 g/dL (6.4-8.2)
--- NOTE | 2021-05-11 19:52 | NUR ---
SHIFT SUMMARY; PATIENT COMES TO MED FLOOR AT APPROX 1730 TODAY. COMES TO SEE HER ABOUT 181 AND NEW ORDERS RECEIVED FOR NG TUBE TO LOW INTERMITTENT SUCTION AND IV NS FLUID AT 150ML/HR PATIENT HAS PLEASANT AFFECT ON ARRIVAL. SHE IS AO X 3. B/P SLIGHTLY ELEVATED
--- NOTE | 2021-05-11 22:10 | NUR ---
NG tube placed to lt nare on 2nd attempt with immedicate return of 1200 ml output . PT had large emisis with insertion. low intermittant suction.
--- NOTE | 2021-05-12 05:52 | NUR ---
PT with recent colostomy placed lt abd admitted with SBO. NG placed to LISX & drained over 2000 ml green fluid. Had syncopal episode at home 4 am unwitnessed. Tele monitor SR 68. She was able to amb to bathroom with minimal assist but felt weak afterwards. She is very thin & weak. PT had been unable to eat or drink for days prior to admission. IVF infusion at 150 ml hr on IV zosyn. Colostomy lt abd remains empty of output.
[2021-05-12 06:22] LABS: BASOPHILS ABSOLUTE AUTO 0.03 K/mm3 (0.00-0.23); BASOPHILS PERCENT AUTO 0 % (0-2); EOSINOPHILS ABSOLUTE AUTO 0.01 K/mm3 (0.00-0.68); EOSINOPHILS PERCENT AUTO 0 % (0-6); Hematocrit 45.4 % (33.0-51.0); Hemoglobin 14.8 g/dL (11.5-16.0); IMMATURE GRAN ABSOLUTE AUTO 0.03 K/mm3 (0.00-0.10); IMMATURE GRAN PERCENT AUTO 0 % (0-1); LYMPHOCYTES ABSOLUTE AUTO 2.46 K/mm3 (0.84-5.20); LYMPHOCYTES PERCENT AUTO 18 % (21-46); MONOCYTES ABSOLUTE AUTO 1.45 K/mm3 (0.16-1.47); MONOCYTES PERCENT AUTO 11 % (4-13); Mean Corpuscular HGB 30.6 pg (26.0-34.0); Mean Corpuscular HGB Conc 32.6 g/dL (31.5-36.5); Mean Corpuscular Volume 94 fL (80-100); Mean Platelet Volume 10.6 fL (9.1-12.4); NEUTROPHILS ABSOLUTE AUTO 9.52 K/mm3 (1.96-9.15); NEUTROPHILS PERCENT AUTO 71 % (41-73); Platelet Count 309 K/mm3 (150-400); RDW Standard Deviation 52.7 fL (35.1-46.3); Red Blood Cell Count 4.83 M/mm3 (3.80-5.20)
[2021-05-12 06:48] LABS: Albumin, Blood 3.5 g/dL (3.4-5.0); Albumin/Globulin Ratio 0.8 (0.8-1.8); Bilirubin, Total 0.9 mg/dL (0.1-1.0); Bun/Creatinine Ratio 20.1 (12.0-20.0); Calcium, Blood 8.8 mg/dL (8.5-10.1); Creatinine, Blood 2.68 mg/dL (0.40-1.00); Globulin, Blood 4.6 g/dL (2.2-4.0); Magnesium, Blood 2.5 mg/dL (1.6-2.4); Potassium, Blood 3.5 mmol/L (3.5-5.5); Total Protein, Blood 8.1 g/dL (6.4-8.2)
--- NOTE | 2021-05-12 18:27 | NUR ---
SHIFT SUMMARY PT AWAKE AT START OF SHIFT, SITTING UP IN BED. NGT TO LIS. IMAGING HERE TO TAKE PT DOWN FOR PICTURES, PER DR NEWELL. NGT DISCONNECTED AT 0850 AND LEFT DISCONNECTED UNTIL 1300. PT REPORTED NAUSEA AND THEN STARTED VOMITING; ZOFRAN GIVEN WITH RELIEF. PT THEN REQUESTED ASSISTANCE TO BTHRM TO EMPTY OSTOMY. PT UP SEVERAL TIMES WITH OSTOMY OUTPUT. PT FEELING BETTER. PT TAKEN DOWN TO IMAGING AGAIN AND THEN RETURNED AT 1300. NGT RECONNECTED AND TURNED TO LIS WITH NO FURTHER OUTPUT. NEW ORDERS LATER PLACED TO D/C NGT WHICH PT WAS GRATEFUL FOR. PT ABLE TO EAT CL DIET NOW AND TOLERATING WELL. DENIED FURTHER NEEDS AT THIS TIME. CALL LT IN REACH.
[2021-05-13 05:49] LABS: BASOPHILS ABSOLUTE AUTO 0.05 K/mm3 (0.00-0.23); BASOPHILS PERCENT AUTO 0 % (0-2); EOSINOPHILS ABSOLUTE AUTO 0.08 K/mm3 (0.00-0.68); EOSINOPHILS PERCENT AUTO 1 % (0-6); Hematocrit 40.7 % (33.0-51.0); Hemoglobin 13.1 g/dL (11.5-16.0); IMMATURE GRAN ABSOLUTE AUTO 0.05 K/mm3 (0.00-0.10); IMMATURE GRAN PERCENT AUTO 0 % (0-1); LYMPHOCYTES ABSOLUTE AUTO 2.13 K/mm3 (0.84-5.20); LYMPHOCYTES PERCENT AUTO 15 % (21-46); MONOCYTES ABSOLUTE AUTO 1.39 K/mm3 (0.16-1.47); MONOCYTES PERCENT AUTO 10 % (4-13); Mean Corpuscular HGB 30.8 pg (26.0-34.0); Mean Corpuscular HGB Conc 32.2 g/dL (31.5-36.5); Mean Corpuscular Volume 96 fL (80-100); Mean Platelet Volume 10.1 fL (9.1-12.4); NEUTROPHILS ABSOLUTE AUTO 10.18 K/mm3 (1.96-9.15); NEUTROPHILS PERCENT AUTO 73 % (41-73); Platelet Count 311 K/mm3 (150-400); RDW Coefficient Variation 14.9 % (11.7-14.2); RDW Standard Deviation 52.3 fL (35.1-46.3); Red Blood Cell Count 4.25 M/mm3 (3.80-5.20); White Blood Cell Count 13.88 K/mm3 (4.00-11.30)
[2021-05-13 06:19] LABS: Albumin/Globulin Ratio 0.7 (0.8-1.8); Bilirubin, Total 0.7 mg/dL (0.1-1.0); Bun/Creatinine Ratio 20.3 (12.0-20.0); Creatinine, Blood 2.95 mg/dL (0.40-1.00); Globulin, Blood 4.2 g/dL (2.2-4.0); Potassium, Blood 3.5 mmol/L (3.5-5.5); Total Protein, Blood 7.2 g/dL (6.4-8.2)
--- NOTE | 2021-05-13 06:50 | NUR ---
PM SHIFT SUMMARY PATIENT SLEPT VAST MAJORITY OF THE SHIFT. SHE DID NOT HAVE ANY COMPLAINTS. I CHECKED IN ON HER TWICE ABOUT EMPTYING HER OSTOMY BAG, BUT SHE STATES SHE DOES IT ON HER OWN WHEN SHE GETS UP TO USE THE RESTROOM. SMALL BOWEL XR SHOWED HER SBO HAS BEEN RESOLVED. PLAN IS FOR IV HYDRATION AND ABX THERAPY.
[2021-05-13 14:46] LABS: Bun/Creatinine Ratio 25.1 (12.0-20.0); Calcium, Blood 7.7 mg/dL (8.5-10.1); Creatinine, Blood 2.07 mg/dL (0.40-1.00); Potassium, Blood 3.1 mmol/L (3.5-5.5)
--- NOTE | 2021-05-13 17:42 | NUR ---
SHIFT SUMMARY PT AWAKE AT START OF SHIFT, CONTINUING TO FEEL BETTER. PT TOLERATED CL DIET LAST NIGHT AND FOR BREAKFAST. DR BELL IN TO SEE PT, PT WANTING TO GO HOME. DR BELL ADVANCED DIET AND THEN DISCUSSED PLAN OF CARE WITH DR ENCARNACION. LR BOLUS GIVEN AND LABS JESSY'D. PT INSISTED ON GOING HOME REGARDLESS. LABS IMPROVED WITH BOLUS. PT OK TO D/C PER D/C INSTRUCTIONS. PT EDUCATED ON NEED TO CONTINUE TO DRINK WATER WHEN GOING HOME. PT VERBALIZED UNDERSTANDING. SCRIPT GIVEN TO PT TO F/U WITH LABS ON MONDAY AND SEE PCP. PT VERBALIZED UNDERSTANDING. ABLE TO DRESS HERSELF. CALLED FOR FRIEND TO PICK HER UP. PT TAKEN OUT TO FRIENDS CAR VIA W/C, WITH BELONGINGS AND INSTRUCTIONS.
== END 2021-05-13 15:44 | disposition home or self-care (01) | DRG 683 ==
LOC: ER 11:28 → MEDS 15:50 → SURS 15:50 → MEDS 16:31
PROVIDERS: Emergency Medicine; Family Medicine; Nurse Practitioner Acute Care; ADMIT Internal Medicine
DX: N17.9 Acute kidney failure, unspecified (principal); K91.30 Postprocedural intestinal obstruction, unspecified as to partial versus complete; E87.2 Acidosis; R65.10 Systemic inflammatory response syndrome (SIRS) of non-infectious origin without acute organ dysfunction; K50.90 Crohn's disease, unspecified, without complications; K56.609 Unspecified intestinal obstruction, unspecified as to partial versus complete obstruction; Y83.9 Surgical procedure, unspecified as the cause of abnormal reaction of the patient, or of later complication, without mention of misadventure at the time of the procedure; W18.30XA Fall on same level, unspecified, initial encounter; E86.0 Dehydration; K59.00 Constipation, unspecified; E03.9 Hypothyroidism, unspecified; F17.210 Nicotine dependence, cigarettes, uncomplicated; D72.829 Elevated white blood cell count, unspecified; I95.9 Hypotension, unspecified; J44.9 Chronic obstructive pulmonary disease, unspecified; Z98.890 Other specified postprocedural states; Y92.000 Kitchen of unspecified non-institutional (private) residence as the place of occurrence of the external cause; Z90.49 Acquired absence of other specified parts of digestive tract; Z90.710 Acquired absence of both cervix and uterus; Z79.890 Hormone replacement therapy; Z88.8 Allergy status to other drugs, medicaments and biological substances; Z79.899 Other long term (current) drug therapy; Z93.3 Colostomy status
CPT/HCPCS: 36415; 70450; 71045; 74177; 74250; 80048; 80053; 83605; 83735; 83880; 84484; 85025; 87040; 93005; 93010; 94760; 96374; 99285-25; A9270; J2405; J2543; J7030; J7120; Q9967

== ENCOUNTER 2022-01-23 10:39 | Emergency (ER) | payer OTHER ==
[~2022-01-23] VITALS: Ht 165.1 cm; Wt 54.4 kg
[2022-01-23] MEDS ORDERED: CODACE30 PO (20:58)
== END 2022-01-23 14:22 | disposition home or self-care (01) ==
LOC: ER 10:39
DX: S91.301A Unspecified open wound, right foot, initial encounter (principal); F17.210 Nicotine dependence, cigarettes, uncomplicated; X58.XXXA Exposure to other specified factors, initial encounter; Z88.8 Allergy status to other drugs, medicaments and biological substances; Z79.890 Hormone replacement therapy
CPT/HCPCS: 73630